=== PATIENT | female | born 1950 | race Caucasian/White ===

== ENCOUNTER 2019-01-09 10:54 | Emergency (ER) | payer MEDICARE, BC ==
[~2019-01-09] VITALS: Ht 162.6 cm; Wt 65.9 kg
[~2019-01-09 10:54] MED LIST: ASPI-611 PO; CHOL50004 PO; ESTR1VAG7 VG; FISH OIL 500 M1 EACH PO; FLEC100T2 PO; LACT1TAB13 PO; LEVO100T PO; METO-539 PO; MULT-1085 PO; NYST60PO2 TP; OMEP-50 PO; ROSU10TA2 PO; VALS1TAB48 PO
[2019-01-09] MEDS ORDERED: LORazepam 2 mg/ml vial IV ONE (11:05)
[2019-01-09 11:15] LABS: BASOPHILS # (AUTO) 0.1 X10'3 (0-0.2); BASOPHILS % (AUTO) 1.1 % (0-1); EOSINOPHILS # (AUTO) 0.1 X10'3 (0-0.9); EOSINOPHILS % (AUTO) 1.9 % (0-6); HEMATOCRIT 39.6 % (35.0-45.0); HEMOGLOBIN 13.2 g/dl (12.0-16.0); LYMPHOCYTES # (AUTO) 1.4 X10'3 (1.1-4.8); LYMPHOCYTES % (AUTO) 19.1 % (21-51); MEAN CORPUSCULAR HEMOGLOBIN 29.1 PG (27.0-31.0); MEAN CORPUSCULAR HGB CONC 33.4 g/dL (33.0-36.5); MEAN CORPUSCULAR VOLUME 87.2 FL (78-98); MONOCYTES # (AUTO) 0.5 X10'3 (0-0.9); MONOCYTES % (AUTO) 7.4 % (2-12); NEUTROPHILS # (AUTO) 5.1 X10'3 (1.8-7.7); NEUTROPHILS % (AUTO) 70.5 % (42-75); PLATELET COUNT 347 X10'3 (140-440); RED BLOOD COUNT 4.54 X10'6 (4.20-5.60); RED CELL DISTRIBUTION WIDTH 14.2 % (11.5-14.5); WHITE BLOOD COUNT 7.2 X10'3 (4.5-11.0)
[2019-01-09] MEDS ORDERED: iohexol 350MG/ML 100ml bottle IV ONE (11:23)
[2019-01-09 11:26] LABS: INR 1.1 INR; PARTIAL THROMBOPLASTIN TIME 28 SECONDS (22-32); PROTHROMBIN TIME 11.2 SECONDS (9.0-12.0)
[2019-01-09 11:28] LABS: ALANINE AMINOTRANSFERASE 30 U/L (12-78); ALBUMIN 3.6 G/DL (3.4-5.0); ALBUMIN/GLOBULIN RATIO 0.8 (1.1-1.5); ALKALINE PHOSPHATASE 70 IU/L (46-116); ANION GAP 11 (8-16); ASPARTATE AMINO TRANSFERASE 20 U/L (10-37); BILIRUBIN,TOTAL 0.3 MG/DL (0.1-1.0); BLOOD UREA NITROGEN 32 MG/DL (7-18); CALCIUM 9.4 MG/DL (8.5-10.1); CHLORIDE 103 MMOL/L (99-107); CREATININE 1.28 MG/DL (0.40-0.90); GLUCOSE 107 MG/DL (70-104); POTASSIUM 3.2 MMOL/L (3.5-5.1); SODIUM 139 MMOL/L (135-145); TOTAL PROTEIN 8.1 G/DL (6.4-8.2); eGFR 41 ML/MIN
[2019-01-09 11:32] LABS: TROPONIN I < 0.04 NG/ML (0.0-0.05)
--- NOTE | 2019-01-09 12:00 | NUR ---
respond to level 1 stroke, pt still in ct, getting cta. gisselle angel in room, states pt discovered this morning to not be able to speak. Call in to pt son, he spoke with her last night at 1900 speech normal and no concerns. recent new heart condition, I have called Dr. Peterson's office. they are faxing over records, onset of PAF in Jun. no coagulation at this time.
--- NOTE | 2019-01-09 12:28 | NUR ---
[facility] REQUEST CALLED, CAMERA #2 AT BEDSIDE WITH STROKE RN
--- NOTE | 2019-01-09 12:30 | NUR ---
Telemedicine consult with [facility] Dr. Naomi osorio, pt with expressive and receptive aphasia. No motor deficits. He recommends stroke workup with admission. Hold off on anticoagulation for at least 7 days due to the size of the left side stroke that is evolving on CT scan.
[2019-01-09] MEDS ORDERED: aspirin 325mg tablet PO ONE (12:50)
[2019-01-09] MEDS ORDERED: normal saline 1000ml 1,000 ML IV SCH (13:06)
[2019-01-09] MEDS ORDERED: aspirin 325mg tablet PO SCH (13:10)
[2019-01-09] MEDS ORDERED: METO50CA PO (13:24)
[2019-01-09] MEDS ORDERED: DEXL60CA3 PO (13:25)
[2019-01-09] MEDS ORDERED: PROG200C7 PO (13:28)
[2019-01-09] MEDS ORDERED: HYDR-4069 PO (13:28)
[2019-01-09] MEDS ORDERED: DICL75TA28 PO (13:28)
--- NOTE | 2019-01-09 13:40 | NUR ---
pt to MRI for study, gisselle remains at bedside. We have had long discussions regarding communication with aphasia.
[2019-01-09 13:54] LABS: CHOL/HDL RATIO 2.2 (0.00-4.99); CHOLESTEROL 209 MG/DL (0-200); HDL CHOLESTEROL 97 MG/DL (35-60); HEMOGLOBIN A1C 5.5 % (4.5-6.2); LDL CHOLESTEROL 96 MG/DL (50-100); TRIGLYCERIDES 96 MG/DL (20-135)
[2019-01-09 14:29] VITALS: BP 186/92
[2019-01-09] MEDS ORDERED: heparin, porcine 5000 units/ml vial SQ SCH (20:00)
[2019-01-10] MEDS ORDERED: atorvastatin 20mg tablet PO SCH (08:00)
== END 2019-01-09 19:33 | disposition short-term general hospital (02) ==
LOC: ER 10:56 → UNDOADMIN 13:06 → ED HOLD 13:06 → ER 19:33 → UNDODISIN 19:33
DX: I63.9 Cerebral infarction, unspecified (principal); E78.00 Pure hypercholesterolemia, unspecified; I10 Essential (primary) hypertension; M19.90 Unspecified osteoarthritis, unspecified site; I48.91 Unspecified atrial fibrillation; Z90.49 Acquired absence of other specified parts of digestive tract; Z90.710 Acquired absence of both cervix and uterus; Z79.82 Long term (current) use of aspirin; Z79.899 Other long term (current) drug therapy
CPT/HCPCS: 36415; 70450; 70496; 70498; 70544; 70551; 71045; 80053; 80061; 82948; 83036; 84484; 85025; 85610; 85730; 93005; 96374; 99291; J2060; J7030; Q9967; G0378

== ENCOUNTER 2024-12-23 03:34 | Emergency (ER) | payer BC, MEDICARE ==
[~2024-12-23] VITALS: Ht 157.5 cm; Wt 69.2 kg
[~2024-12-23 03:34] MED LIST changes: +DEXL60CA3 PO; +DICL75TA28 PO; +HYDR25TA90 PO; -METO-539 PO; +METO50CA PO; -OMEP-50 PO; +PROG200C11 PO; -VALS1TAB48 PO; +VALS1TAB7 PO
[2024-12-23] MEDS: ondansetron/PF 4mg/2ml inj IV ONE (04:51)
[2024-12-23] MEDS: morphine 2 MG/ML inj. syringe IV ONE (04:54)
[2024-12-23] MEDS: normal saline 1000ml 1,000 ML IV ONE (05:26)
[2024-12-23] MEDS ORDERED: iohexol 300mg/ml 100ml inj. ONE (05:30)
[2024-12-23 05:41] LABS: BASOPHILS # (AUTO) 0.1 X10'3 (0-0.2); BASOPHILS % (AUTO) 0.6 % (0-1); EOSINOPHILS # (AUTO) 0.1 X10'3 (0-0.9); EOSINOPHILS % (AUTO) 0.9 % (0-6); HEMATOCRIT 37.2 % (35.0-45.0); HEMOGLOBIN 12.3 g/dl (12.0-16.0); LYMPHOCYTES # (AUTO) 0.6 X10'3 (1.1-4.8); LYMPHOCYTES % (AUTO) 6.3 % (21-51); MEAN CORPUSCULAR HEMOGLOBIN 28.5 PG (27.0-31.0); MEAN CORPUSCULAR VOLUME 86.3 FL (78-98); MEAN PLATELET VOLUME 8.7 FL (7.4-10.4); MONOCYTES # (AUTO) 0.9 X10'3 (0-0.9); NEUTROPHILS # (AUTO) 8.4 X10'3 (1.8-7.7); NEUTROPHILS % (AUTO) 83.2 % (42-75); PLATELET COUNT 246 X10'3 (140-440); RED BLOOD COUNT 4.31 X10'6 (4.20-5.60); RED CELL DISTRIBUTION WIDTH 15.4 % (11.5-14.5); WHITE BLOOD COUNT 10.1 X10'3 (4.5-11.0)
[2024-12-23 05:56] LABS: ALANINE AMINOTRANSFERASE 11 U/L (12-78); ALBUMIN 2.9 G/DL (3.4-5.0); ALBUMIN/GLOBULIN RATIO 0.7 (1.1-1.5); ALKALINE PHOSPHATASE 61 IU/L (46-116); ANION GAP 10 (8-16); ASPARTATE AMINO TRANSFERASE 16 U/L (10-37); BILIRUBIN,TOTAL 0.8 MG/DL (0.1-1.0); BLOOD UREA NITROGEN 19 MG/DL (7-18); BUN/CREATININE RATIO 13.1 (10.0-20.0); CALCIUM 7.8 MG/DL (8.5-10.1); CHLORIDE 105 MMOL/L (99-107); CREATININE 1.45 MG/DL (0.40-0.90); GLUCOSE 116 MG/DL (70-104); LIPASE 79 U/L (16-77); SODIUM 139 MMOL/L (135-145); TOTAL CARBON DIOXIDE 23.7 MMOL/L (24-32); TOTAL PROTEIN 6.8 G/DL (6.4-8.2); eCRCL 27 ML/MIN; eGFR 35 ML/MIN
[2024-12-23 06:00] LABS: POTASSIUM 2.2 MMOL/L (3.5-5.1)
[2024-12-23] MEDS ORDERED: magnesium sulf-water 2g/50mL 50 ML IV PRN (06:30)
[2024-12-23] MEDS ORDERED: magnesium sulf-water 4G/100mL 100 ML IV PRN (06:30)
[2024-12-23] MEDS ORDERED: potassium Cl 20 mEq SR tablet PO PRN (06:30)
[2024-12-23] MEDS ORDERED: magnesium Cl slow-release 64mg tablet PO PRN (06:30)
[2024-12-23 06:53] LABS: BILIRUBIN,URINE NEGATIVE (Neg); CLARITY,URINE CLEAR (Clear); COLOR,URINE STRAW (Yellow); GLUCOSE, URINE NEGATIVE (Neg); KETONES,URINE NEGATIVE (Neg); LEUKOCYTE ESTERASE ,URINE TRACE (Neg); NITRITES, URINE NEGATIVE (Neg); OCCULT BLOOD,URINE SMALL (Neg); PROTEIN,URINE TRACE mg/dl (Neg); UROBILINOGEN,URINE 0.2 E.U/dL (0.2-1.0)
[2024-12-23 07:04] LABS: UA COLLECTION TYPE CLN CATCH MIDSTREAM
[2024-12-23 07:08] LABS: BACTERIA,URINE FEW /HPF (Neg); MUCUS STRANDS NONE SEEN /LPF (Neg); RBC,URINE 0-2 /HPF (0-2); SQUAMOUS EPITHELIAL CELL,UR FEW /LPF (FEW); WBC CLUMPS,URINE FEW /HPF (NEGATIVE)
[2024-12-23] MEDS: CefTRIAXone/D5W-Rocephin 1gm 50 ML IV ONE (07:40)
[2024-12-23] MEDS: potassium Cl 40MEQ/1/2NS 520ml 520 ML IV PRN (07:49)
[2024-12-23] MEDS: K and/or MAG REPLACEMENT MC SCH (08:00)
[2024-12-23] MEDS ORDERED: POTA-207 PO (08:41)
[2024-12-23] MEDS ORDERED: CEFU250T95 PO (08:41)
[2024-12-23] MEDS ORDERED: ONDA-243 PO (08:41)
[2024-12-23] MEDS: potassium Cl 20 mEq SR tablet PO PRN (11:32)
[2024-12-23 12:23] VITALS: BP 149/86; PULSE 69; RESP 16; TEMP 98.2; O2SAT 99
== END 2024-12-23 12:25 | disposition home or self-care (01) ==
LOC: ER 03:36
DX: R10.30 Lower abdominal pain, unspecified (principal); R11.2 Nausea with vomiting, unspecified; E87.6 Hypokalemia; N39.0 Urinary tract infection, site not specified; M19.90 Unspecified osteoarthritis, unspecified site; I48.91 Unspecified atrial fibrillation; I10 Essential (primary) hypertension; E78.00 Pure hypercholesterolemia, unspecified; Z88.8 Allergy status to other drugs, medicaments and biological substances; Z90.49 Acquired absence of other specified parts of digestive tract; Z90.710 Acquired absence of both cervix and uterus; Z79.82 Long term (current) use of aspirin
CPT/HCPCS: 36415; 74176; 80053; 81001; 83690; 85025; 87088; 96361; 96365; 96366; 96368; 96375; 99285; J0696; J2270; J2405; J3480; J7030; Q9967